=== PATIENT | female | born 1985 | race Caucasian/White ===

== ENCOUNTER → 2018-04-14 11:17 | Outpatient (CLI) | payer OTHER, MEDICAID, SELFPAY ==
[2018-04-14 13:18] LABS: Hematocrit 35.1 % (36-46); Hemoglobin 11.8 g/dL (12.0-16.0)
[2018-04-14 14:20] LABS: GTT (PREG) 1 Hour PP 50gm Dose 97 mg/dL (76-139)
== END ==
DX: Z36.9 Encounter for antenatal screening, unspecified (principal); Z3A.25 25 weeks gestation of pregnancy
CPT/HCPCS: 36415; 82950; 85014; 85018

== ENCOUNTER → 2018-06-16 10:58 | Outpatient (CLI) | payer OTHER, MEDICAID, SELFPAY ==
[2018-06-17 08:32] LABS: Strep Grp B PCR POS for Grp B Strep
== END ==
PROVIDERS: PCP Family Medicine
DX: Z34.83 Encounter for supervision of other normal pregnancy, third trimester (principal)
CPT/HCPCS: 87653

== ENCOUNTER 2018-07-04 05:49 | Inpatient (IN) | payer OTHER, MEDICAID, SELFPAY ==
[2018-07-04 06:40] LABS: Add Manual Diff / Slide Review NO; Basophils Percent Auto 0.6 % (0-2); Eosinophils Percent Auto 0.7 % (2-4); Hematocrit 33.7 % (36-46); Hemoglobin 11.3 g/dL (12.0-16.0); Lymphocytes Percent Auto 34.2 % (25-40); Mean Corpuscular HGB Conc 33.6 % (30-36); Mean Corpuscular Hemoglobin 27.1 PG (26-34); Mean Corpuscular Volume 80.5 fL (80-100); Monocytes Percent Auto 5.7 % (3-14); Neutrophils Absolute Auto 5000 /uL (3000-5900); Neutrophils Percent Auto 58.8 % (50-75); Platelet Count 142 X10^3/uL (150-400); Red Blood Cell Count 4.19 X10^6/uL (4.0-5.2); White Blood Cell Count 8.5 X10^3/uL (4.5-11.0)
--- NOTE | 2018-07-04 07:27 | SUR.OPER ---
Supine on Padded OR bed, head on pillow, safety belt at thigh, arms secured on padded arm boards at <90 degrees abduction. Bump under right buttock. Legs uncrossed with pillow under knees, gel pad to heels, tape over blanket to lower legs.
[2018-07-04] MEDS: CEFAZOLIN 2 GM/100 ML FROZ.PIGGY IV (08:08)
--- NOTE | 2018-07-04 08:22 | PM.PREOP ---
Pre-operative Note Interval Note Pre-op Check: Yes History & Physical Reviewed by Physician Changes: No
[2018-07-04] MEDS: TRIAMCINOLONE 50 MG/5 ML VIAL INJ (08:27)
--- NOTE | 2018-07-04 08:39 | SUR.OPER ---
Viable female born at 0841. Placenta and cord blood sent with L&D RN.
[2018-07-04 09:15] VITALS: BP 119/69; PULSE 91; RESP 12; TEMP 36.4; O2SAT 100
[2018-07-04 09:20] VITALS: BP 121/58; PULSE 76; RESP 10; O2SAT 98
[2018-07-04 09:25] VITALS: BP 124/77; PULSE 88; RESP 10; O2SAT 97
[2018-07-04 09:30] VITALS: BP 110/66; PULSE 88; RESP 14; TEMP 36.6; O2SAT 98
[2018-07-04 09:43] VITALS: BP 117/61; PULSE 75; RESP 12; TEMP 36.6; O2SAT 98
--- NOTE | 2018-07-04 09:46 | PM.GYNOP.1 ---
Operative Date/Time/Diagnoses Date of procedure: 07/04/18 Time of procedure: 09:46 Pre-op diagnosis: 39 weeks gestation Previous section Keloid scar Post-op diagnosis: same Procedure: Procedures Operation Date: 07/04/18 07:45 Actual Procedures Side Surgeon p Section-Repeat Not Applicable Radha Hurt MD Repeat LTCS and scar revision Indications: 39 weeks gestation Previous section Keloid scar Surgeon: Radha Hurt Anesthesia Type: Spinal (With Duramorph) Operative Notes Findings: Live female Normal tubes and ovaries Normal uterus Keloid scar from previous Pfannenstiel incision Closure Type: primary Specimen(s): other (Cord blood, placenta) Applied: catheter Estimated blood loss (mL): 600 Blood products transfused: none Procedure in detail: The patient was taken to the operating room where she was placed in the seated position. Spinal anesthesia with Duramorph was administered. The patient was then placed in the dorsal supine position with a leftward tilt. She was prepped and draped in the usual sterile fashion. A timeout was performed. After spinal analgesia was found to be adequate, the previous scar was excised in an elliptical fashion and carried through to the underlying layer fascia. The fascia was nicked in the midline, and the incision extended bilaterally with the Turner scissors. The superior aspect of the fascial incision was grasped with a [place] clamps, elevated, and the underlying rectus muscles dissected off sharply and bluntly. Attention was then turned to the inferior aspect of this incision which in a similar fashion was grasped with a Tl clamps, elevated, and the underlying rectus muscles dissected off sharply and bluntly. The rectus muscles were in the midline. The peritoneum was identified, grasped between 2 hemostats, and entered sharply with the Metzenbaum scissors. This incision was extended superiorly and inferiorly with good visualization of the bladder. The bladder blade was inserted. The vesicouterine peritoneum was identified, grasped with the pickup, and entered sharply with the Metzenbaum scissors. This incision was extended bilaterally, and the bladder flap was created digitally. The bladder blade was reinserted. The lower uterine segment was incised in a transverse fashion with the scalpel. Upon entering the amniotic sac there was moderate amount of clear amniotic fluid. The 's head was delivered with vacuum assistance. The remainder of the body delivered without difficulty. The cord was double clamped and cut. The was handed off to waiting RN and RT. The placenta was delivered manually. The uterus was cleared of all clots and debris. The uterine incision was repaired with #1 chromic in a running interlocking fashion, and a second layer the same suture was used for an imbricating layer. Hemostasis was achieved. The tubes and ovaries were examined and were found to be normal. The gutters were cleared of all clots and debris. The bladder flap was reapproximated using 2-0 Vicryl in a running fashion. The parietal peritoneum was closed using 2-0 Vicryl in a running fashion. The fascia was reapproximated using 0 Vicryl in a running fashion. The subcutaneous layer was copiously irrigated with warm normal saline. 5 simple interrupted sutures of 3-0 Vicryl were placed to reapproximate the subcutaneous layer. The skin was closed with 4-0 undyed Vicryl in a subcuticular fashion. 15 cc of 15 mg of Kenalog with normal saline was injected along the previous incision with 1 milligram/centimeter. Steri-Strips were placed. An Aquacell dressing was placed. The uterus was expressed of a small amount of old blood. Sponge, lap, and instrument counts were correct x-2. The patient tolerated the procedure well, and was taken to PACU in stable condition. Complications: none Post-operative Condition: stable Disposition: PACU Plan for aftercare: To Center after recovery
[2018-07-04] MEDS: LACTATED RINGERS 1,000 ML 100 ML IV ×2 (11:15→20:45)
[2018-07-04] MEDS: OXYCODONE/ACETAMINOPHEN 5/325 TABLET 2 TAB PO (12:19)
[2018-07-04] MEDS: METOCLOPRAMIDE 10 MG/2 ML INJ IV (15:18)
[2018-07-04] MEDS: KETOROLAC 30 MG/ML VIAL IV ×2 (16:18→22:18)
[2018-07-05] MEDS: KETOROLAC 30 MG/ML VIAL IV (04:11)
[2018-07-05] MEDS: OXYCODONE/ACETAMINOPHEN 5/325 TABLET 2 TAB PO ×5 (05:04→21:58)
[2018-07-05 06:34] LABS: Hematocrit 28.7 % (36-46); Hemoglobin 9.6 g/dL (12.0-16.0)
[2018-07-05] MEDS: PRENATAL VIT,CALC/IRON/FOLIC 1 TABLET 1 TAB PO (11:25)
[2018-07-05] MEDS: IBUPROFEN 600 MG TABLET PO ×3 (11:25→23:15)
[2018-07-05] MEDS: DOCUSATE 250 MG CAPSULE PO (11:26)
[2018-07-06] MEDS: OXYCODONE/ACETAMINOPHEN 5/325 TABLET 2 TAB PO ×2 (04:33→09:45)
[2018-07-06] MEDS: IBUPROFEN 600 MG TABLET PO ×2 (05:47→11:45)
[2018-07-06] MEDS: DOCUSATE 250 MG CAPSULE PO (09:45)
--- NOTE | 2018-07-06 12:20 | PM.OBPN.1 ---
Subjective - OB Interval history: Patient is a 33-year-old 2 para 2 postop day # 1. Status post repeat low-transverse section Patient comments: no complaints, pain well controlled, tolerating diet and flatus present baby status: doing well and nursing well feeding status: exclusively breast feeding Date Patient Seen: 07/05/18 Time Patient Seen: 11:30 Exam Vital Signs (past 8 hours): Oxygen Delivery Method Room Air Narrative Exam Narrative: Generally: A well-developed, well-nourished white female, sitting up in bed, no acute distress Lungs: Clear to auscultation bilateral Cardiovascular: Regular rate and rhythm Fundus: Firm at U -1 Incision: Clean dry and intact with Aquacel dressing Extremities: Negative Homans, no edema Objective Labs Result Diagrams: 07/05/18 06:10 Assessment & Plan (1) Status post repeat low transverse section: Status: Acute Assessment and plan: Assessment: Postop day # 1 status post repeat low-transverse section doing very well Plan: Anticipate discharge 07/06/2018 Continue routine postop care Current Visit: Yes Plan day: 1 plan OB: routine postop care Time Spent With Patient Total time spent is greater than 50% in coordination of care (as documented) at patient's floor/unit and/or counseling patient: less than 15 minutes
--- NOTE | 2018-07-06 12:31 | P.DS_ITS ---
Discharge Providers Date of admission: 07/04/18 05:49 Primary care physician: Therese Jackson MD Consults: 07/04/18 11:14 Consult to Market Research Senior Project Manager Routine Comment: Discharge provider: Radha Hurt MD Discharge Date: 07/06/18 Summary Date Patient Seen: 07/06/18 Time Patient Seen: 12:32 Hospital Course: Patient is a 33-year-old 2 para 2 who presented on 07/04/2018 for a scheduled repeat section due to a previous section. She underwent this procedure without complication. Her postoperative course was unremarkable and she was discharged home on postop day # 2 tolerating a diet , pain well controlled, ambulating, and going well. Peripartum Data Delivery Method: Section Laceration description: None Episiotomy description: None Procedures: Repeat low-transverse section Spinal anesthesia with Duramorph complications: none Discharge Diagnosis (1) Status post repeat low transverse section: Status: Acute Status at Discharge Functional status at discharge: independent ambulation Overall status at discharge: patient is progressing back to baseline Time Spent with Patient Total time spent providing and/or coordinating discharge services: Less than 30 minutes Objective Labs Result Diagrams: 07/05/18 06:10 Discharge Plan Discharge Plan Discharge comment: Call with fever, chills, redness or drainage around incisions or bleeding vaginally more than a pad in an hour Discharge Med Rec/Prescriptions Prescriptions: New oxycodone-acetaminophen [Percocet] 5-325 mg tablet 2 tab PO Q4-6H PRN (Reason: pain) Qty: 30 RF: 0 docusate sodium 250 mg capsule 250 mg PO DAILY Qty: 14 RF: 0 Continue Breast Pump - Double Electric PRN PRNQty: 1 RF: 0 vit-iron fum-folic ac [Mynatal] 65 mg iron- 1 mg capsule 1 cap PO QDAY Qty: 100 RF: 3 Discontinued dextroamphetamine-amphetamine [Adderall] 10 MG tablet 10 mg PO QAM Qty: 30 RF: 0 dextroamphetamine-amphetamine [Adderall XR] 30 MG capsule,extended release 24hr 30 mg PO QAM Qty: 30 RF: 0 omeprazole 20 mg capsule,delayed release(DR/EC) 20 mg PO QDAY@0600 Qty: 30 RF: 3 omeprazole 20 mg capsule,delayed release(DR/EC) RF: 0 Follow up/Referrals: Radha Hurt MD [Physician] - 1 Week (Saturday for Aquacel removal. My nurse will call on Saturday to schedule) Discharge Orders: Discharge (Order); Ordered 07/06/18 Ordered By: Radha Hurt Provider Discharge Instructions Diet: Diet as Tolerated and Regular Activity: No intercourse No heavy lifting Skin/Wound/Dressing Care Report to your healthcare provider any signs of infection, such as:: chills, fever, increased pain and unusual drainage Dressing: Do not remove Visit Report/Discharge Packet Instructions: DI for Discharge Data Primary Care Provider: Therese Jackson Attending Provider: Radha Hurt Admit Date/Time: 07/04/18 05:49
== END 2018-07-06 12:35 | disposition home or self-care (01) | DRG 540 ==
PROVIDERS: Admitting Provider Obstetrics & Gynecology; PCP Family Medicine; Visit Provider Obstetrics & Gynecology
PROC: 10D00Z1 Extraction of Products of Conception, Low, Open Approach (ICD-10-PCS; CPT 59514; principal; 2018-07-04 07:45)
DX: O34.219 Maternal care for unspecified type scar from previous cesarean delivery (principal); Z3A.39 39 weeks gestation of pregnancy; Z37.0 Single live birth
CPT/HCPCS: 36415; 59050; 59514; 85014; 85018; 85025; 86850; 86900; 86901; J0171; J0690; J1885; J2274; J2405; J2590; J2765; J3301

== ENCOUNTER → 2019-03-01 11:37 | Outpatient (CLI) | payer OTHER, MEDICAID, SELFPAY | PROVIDERS: PCP Family Medicine; Visit Provider Physician Assistant | DX: N89.8 Other specified noninflammatory disorders of vagina (principal) | CPT/HCPCS: 87210 ==

== ENCOUNTER → 2021-06-15 08:08 | Outpatient (CLI) | payer OTHER, MEDICAID, SELFPAY ==
[2021-06-15 09:06] LABS: COVID19 -Nasal RAPID POSITIVE (Negative)
== END ==
PROVIDERS: PCP Family Medicine; Visit Provider Nurse Practitioner
DX: U07.1 COVID-19 (principal)
CPT/HCPCS: 87635

== ENCOUNTER → 2023-05-06 10:46 | Outpatient (CLI) | payer OTHER, MEDICAID, SELFPAY | PROVIDERS: PCP Family Medicine; Visit Provider Nurse Practitioner Family | DX: N39.0 Urinary tract infection, site not specified (principal) | CPT/HCPCS: 81002; 87077; 87086; 87186 ==

== ENCOUNTER → 2023-09-12 14:54 | Outpatient (CLI) | payer OTHER, MEDICAID, SELFPAY ==
[2023-09-12 16:40] LABS: Appearance Urine UA CLEAR; Bilirubin Urine UA NEGATIVE (NEGATIVE); Color Urine UA YELLOW; Glucose Urine UA NEGATIVE (Negative); Ketones Urine UA NEGATIVE (NEGATIVE); Leukocyte Esterase Urine UA 1+ (NEGATIVE); Nitrite Urine UA NEGATIVE (Negative); Occult Blood Urine UA NEGATIVE (Negative); Protein Urine UA NEGATIVE (Negative); Specific Gravity Urine UA <=1.005 (1.000-1.035); Urobilinogen Urine UA 0.2 E.U./dL (0.2)
[2023-09-12 17:00] LABS: pH Urine UA 5.5 (4.5-8.0)
[2023-09-12 17:01] LABS: Bacteria Urine None Seen; Culture Indicated Urine Cult Not Indicated; RBC Urine None Seen (0-5/HPF); Squamous Epithelial Cell Urine 0-1 /HPF (0-5/HPF); WBC Urine 0-1/HPF (0-5/HPF)
== END ==
PROVIDERS: PCP Family Medicine; Referring Provider Family Medicine; Visit Provider Family Medicine
DX: R30.0 Dysuria (principal)
CPT/HCPCS: 81001

== ENCOUNTER → 2024-11-14 08:44 | Outpatient (CLI) | payer OTHER, SELFPAY | PROVIDERS: PCP Family Medicine; Visit Provider Nurse Practitioner Family | DX: J02.9 Acute pharyngitis, unspecified (principal) | CPT/HCPCS: 87070 ==

== ENCOUNTER 2025-09-02 01:37 | Emergency (ER) | payer OTHER, SELFPAY ==
[2025-09-02] VITALS (8 sets, daily range): BP systolic 90–142; BP diastolic 59–89; PULSE 46–78; RESP 16–24; TEMP 37.2; O2SAT 96–100; BMI 32.9
--- NOTE | 2025-09-02 01:53 | DI.CT.S_ITS ---
PROCEDURE: CT ABDOMEN PELVIS WO CON INDICATIONS: pain TECHNIQUE: CT of the abdomen and pelvis was obtained without intravenous contrast. Coronal and sagittal reformats were performed. For radiation dose reduction, the following was used: automated exposure control, adjustment of mA and/or kV according to patient size. COMPARISON: None. FINDINGS: Image quality: Diagnostic. Lower Chest: No significant findings. ABDOMEN: Liver: No contour-deforming mass. Gallbladder: No radiopaque gallstones or wall thickening. Biliary ducts: No biliary dilation. Pancreas: No ductal dilation. Spleen: Size is within normal limits. Adrenal Glands: No adrenal nodules. Kidneys and Ureters: Mild left hydro nephrosis and proximal left hydroureter secondary to a 5 mm calcified stone in the left proximal ureter, Hounsfield density of 420, (series 2, image 64). Punctate nonobstructive 1-2 mm stone in the left interpolar kidney (2/52). No right hydronephrosis or stone. Stomach and Bowel: Normal colonic caliber, without significant wall thickening. Normal appendix Peritoneum: No abnormal intraperitoneal fluid. No free air. Ventral Wall: No significant hernia. Abdominal Nodes: No retroperitoneal or mesenteric adenopathy by size criteria. Vessels: Aorta and inferior vena cava are normal in size. PELVIS: Pelvic Organs: Unremarkable. Bladder: Unremarkable. Pelvic Nodes: No enlarged lymph nodes. Miscellaneous: No inguinal hernias are seen. Bones: No aggressive osseous abnormality. IMPRESSION: Partially obstructive left proximal ureteral 5 mm stone with mild left hydroureteronephrosis. Additional nonobstructive 2 mm stone in the left interpolar kidney. Findings are concordant preliminary interpretation provided by [facility]. Dictated by: Cornel Bueno M.D. on 09/02/2025 at 7:55 Approved by: Cornel Bueno M.D. on 09/02/2025 at 7:58
[2025-09-02] MEDS: KETOROLAC 30 MG/ML VIAL 15 MG IV (02:00)
[2025-09-02 02:01] LABS: Add Manual Diff / Slide Review NO; Hematocrit 36.4 % (36-46); Hemoglobin 12.1 g/dL (12.0-16.0); Lymphocytes Absolute Auto 4900 /uL (1100-4500); Mean Corpuscular HGB Conc 33.1 % (30-36); Mean Corpuscular Hemoglobin 24.8 PG (26-34); Mean Corpuscular Volume 74.9 fL (80-100); Platelet Count 262 X10^3/uL (150-400)
--- NOTE | 2025-09-02 02:02 | PC.NURSE ---
Pt to imaging via ED stretcher with psychiatric tech
[2025-09-02 02:08] LABS: Culture Indicated Urine Cult Not Indicated
--- NOTE | 2025-09-02 02:09 | ED_ITS ---
HPI - General Adult General Chief complaint: Abdominal Pain Stated complaint: Abdominal Pain, Vomiting Time Seen by Provider: 09/02/25 01:43 Source: patient Mode of arrival: Ambulatory History of Present Illness HPI narrative: 40-year-old female with history of ADHD, without history of known kidney stones, has acute onset left flank nontraumatic pain, with some nausea no emesis. No fevers or chills. No painful frequent urination. No injury trauma new activities recalled. Had strep infection treated with amoxicillin and June 2025, otherwise no recent antibiotics. No recent diarrhea. Had initial nausea without emesis. No recent cough shortness of breath chest pain. Related Data Previous Rx's ?Medication ?Instructions ?Recorded clotrimazole-betamethasone 1 1 applic topical BID #45 grams 01/06/24 %-0.05 % topical cream fluconazole 150 mg tablet 150 mg PO Q3D 2 doses #2 tab s 06/24/25 metformin 500 mg tablet,extended 500 mg PO BID #180 ta bs 07/07/25 release 24 hr dextroamphetamine-amphetamine 12.5 12.5 mg PO DAILY #3 0 tabs 08/09/25 mg tablet lisdexamfetamine 70 mg capsule 70 mg PO DAILY #30 caps 08/09/25 cefdinir 300 mg capsule 300 mg PO BID 10 days #20 ca ps 09/02/25 fluconazole 200 mg tablet 200 mg PO DAILY #3 tabs 08/08 04/30 hydrocodone 5 mg-acetaminophen 325 1 tab PO Q6H PRN pa in #10 tabs 09/02/25 mg tablet Allergies Allergy/AdvReac Type Severity Reaction Status Date / Time No Known Drug Allergies Allergy Verified 09/02/25 01:53 Patient History Medical History (Updated 09/02/25 @ 04:02 by Dago Perez MD) Chronic headaches ADHD (attention deficit hyperactivity disorder) Migraines Plantar warts (2009) PCOS (polycystic ovarian syndrome) Infertility HPV (human papilloma virus) infection (2008) Abnormal Pap smear of cervix (2008) Surgical History Status post repeat low transverse section Status post delivery (04/25/17) Family History Father Age: 67 Migraine Sleep apnea Grandfather Diabetes mellitus Heart disease Hypertension Grandmother Age: 94 Alzheimer's dementia Mental health problem Mother Age: 67 Hypertension Grandmother Age: 94 Mental health problem Social History marital status: number of children: 2 household members: family lives independently: Yes caregiver/support person: No housing: house occupational status: unemployed Smoking Status: Never smoker second hand exposure: No alcohol intake: former substance use type: does not use Smoking Status: Never smoker Exam Narrative Exam Narrative: GENERAL: Well-developed patient, in mild distress. HEAD: Atraumatic. Normocephalic. EYES: Pupils equal round and reactive. Extraocular motions intact. No scleral icterus. No injection or drainage. ENT: Nose without bleeding, purulent drainage. Throat without erythema, tonsillar hypertrophy or exudate. Airway patent. NECK: Trachea midline. Non tender CARDIOVASCULAR: Regular rate and rhythm without murmurs, gallops, or rubs. RESPIRATORY: Clear to auscultation. Breath sounds equal bilaterally. No wheezes, rales, or rhonchi. GASTROINTESTINAL: Abdomen soft, non-tender, nondistended. EXTREMITIES: No edema or joint tenderness. BACK: Nontender without deformity or crepitance. No flank tenderness. NEURO: AOx3. Motor functions grossly nonfocal. SKIN: No rash or erythema of visible areas Initial Vital Signs Initial Vital Signs: Vital Signs Pulse Rate 46 L 09/02/25 01:50 Pulse Oximetry 100 09/02/25 01:50 Course Orders Ordered: ED Orders 09/02/25 01:50 Complete Blood Count AUTO DIFF Stat Comprehensive Metabolic Panel Stat Lipase Stat 09/02/25 01:52 Urine Culture Stat Urine Microscopic Stat 09/02/25 01:53 CT abdomen pelvis wo con Stat Discontinued Medications Ceftriaxone Sodium 1,000 mg/ (Sodium Chloride) 100 mls @ 200 mls/hr IV NOW ONE Stop: 09/02/25 02:14 Last Infusion: 09/02/25 03:14 Dose: Infused Documented By: Infusion: 09/02/25 03:06 Dose: Infused Documented By: Admin: 09/02/25 02:19 Dose: 200 mls/hr Documented By: CARLINE Sodium Chloride (Normal Saline 0.9%) 1,000 mls @ 1,000 mls/hr IV BOLUS ONE Stop: 09/02/25 03:20 Last Infusion: 09/02/25 03:04 Dose: 0 mls/hr Documented By: Admin: 09/02/25 02:30 Dose: 1,000 mls/hr Documented By: CARLINE Ketorolac Tromethamine (Ketorolac 30 Mg/Ml Vial) 15 mg IV NOW ONE Stop: 09/02/25 01:55 Last Admin: 09/02/25 02:00 Dose: 15 mg Documented By: CARLINE Ondansetron HCl (Ondansetron 4 Mg/2 Ml Inj) 4 mg IV NOW ONE Stop: 09/02/25 03:08 Last Admin: 09/02/25 04:17 Dose: Not Given Documented By: CEE Ondansetron HCl (Ondansetron 4 Mg Odt Prepack) 1 bottle MISC DIRECTED ONE Stop: 09/02/25 04:02 Last Admin: 09/02/25 04:07 Dose: 1 bottle Documented By: CEE Vital Signs Vital signs: Vital Signs - 8 hr 09/02/25 01:50 09/02/25 01:53 09/02/25 02:00 Temperature 99.0 F Pulse Rate 46 L 47 L 58 L Respiratory Rate 24 Blood Pressure 142/89 H Pulse Oximetry 100 98 99 Oxygen Delivery Method Room Air 09/02/25 02:12 09/02/25 02:12 09/02/25 02:30 Temperature Pulse Rate 70 69 Respiratory Rate 16 Blood Pressure 131/72 Pulse Oximetry 98 100 Oxygen Delivery Method 09/02/25 02:30 09/02/25 03:00 09/02/25 03:00 Temperature Pulse Rate 72 Respiratory Rate 16 Blood Pressure 110/75 104/67 Pulse Oximetry 100 Oxygen Delivery Method 09/02/25 03:30 09/02/25 03:30 09/02/25 04:00 Temperature Pulse Rate 72 78 Respiratory Rate 16 Blood Pressure 90/63 Pulse Oximetry 96 98 Oxygen Delivery Method 09/02/25 04:00 Temperature Pulse Rate Respiratory Rate 16 Blood Pressure 94/59 L Pulse Oximetry Oxygen Delivery Method Medical Decision Making Lab Data Lab results reviewed: Yes I reviewed the patient's lab results. Lab results narrative: White blood cell count 38924, hemoglobin 12.1, platelets adequate. Glucose 129. BUN 20 with creatinine 0.82 normal renal function, normal serum CO2, normal electrolytes. Liver functions and lipase normal. Urinalysis shows hematuria and some bacteria, urine culture was ordered specifically. HCG negative. 09/02/25 01:50 09/02/25 01:50 Labs: Lab Results 09/02/25 09/02/25 Range/Units 01:50 01:52 WBC 11.2 H (4.5-11.0) X10^3/uL RBC 4.87 (4.0-5.2) X10^6/uL Hgb 12.1 (12.0-16.0) g/dL Hct 36.4 (36-46) % MCV 74.9 L (80-100) fL MCH 24.8 L (26-34) PG MCHC 33.1 (30-36) % RDW 14.0 (11.6-14.8) % Plt Count 262 (150-400) X10^3/uL Neut % (Auto) 46.8 L (50-75) % Lymph % (Auto) 43.6 H (25-40) % [place] % (Auto) 6.8 (3-14) % Eos % (Auto) 1.5 L (2-4) % Baso % (Auto) 1.3 (0-2) % Neut # (Auto) 5300 (3436-0118) /uL Lymph # (Auto) 4900 H (7114-9711) /uL [place] # (Auto) 800 (0-900) /uL Eos # (Auto) 200 (0-450) /uL Baso # (Auto) 100 (0-100) /uL Sodium 141 (137-145) mmol/L Potassium 3.9 (3.4-5.1) mmol/L Chloride 108 H (98-107) mmol/L Carbon Dioxide 23 (22-32) mmol/L BUN 18 H (7-17) mg/dL Creatinine 0.82 (0.52-1.04) mg/dL Estimated GFR > 60 (>60) mL/min BUN/Creatinine Ratio 22.0 (6-22) Glucose 129 H (70-99) mg/dL Calcium 9.3 (8.4-10.2) mg/dL Total Bilirubin 0.3 (0.2-1.3) mg/dL AST 22 (14-36) IU/L ALT 21 (<35) IU/L Alkaline Phosphatase 84 (38-126) U/L Total Protein 7.5 (6.3-8.2) g/dL Albumin 4.6 (3.5-5.0) g/dL Globulin 2.9 (1.7-4.1) g/dL Albumin/Globulin Ratio 1.6 (1.0-2.8) Lipase 95 (23-300) U/L Urine RBC >100/hpf H (0-5/HPF) Urine WBC None seen (0-5/HPF) Ur Squamous Epith Cells 1-5 /hpf (0-5/HPF) Urine Bacteria Moderate (10-30) H (None) Urine Mucus 1+ H (Negative) Ur Culture Indicated? Cult not indicated Vol Urine Centrifuged 10ml (spun) Point of Care Testing Test Results Negative Urine Dip Bedside Urine Glucose Negative Bedside Urine Bilirubin - Negative Bedside Urine Ketone - Negative Urine Specific [place] 1.030 Bedside Urine Occult Blood +++ Bedside Urine pH 6.0 Bedside Urine Protein + 30 Bedside Urine Urobilinogen - Negative Bedside Urine Nitrite - Negative Bedside Urine Leukocytes - Negative Esterase Point of care testing: Point of Care Testing Test Results Negative Urine Dip Bedside Urine Glucose Negative Bedside Urine Bilirubin - Negative Bedside Urine Ketone - Negative Urine Specific [place] 1.030 Bedside Urine Occult Blood +++ Bedside Urine pH 6.0 Bedside Urine Protein + 30 Bedside Urine Urobilinogen - Negative Bedside Urine Nitrite - Negative Bedside Urine Leukocytes - Negative Esterase MDM Narrative Medical decision making narrative: 40-year-old female with acute onset left flank pain, no injury trauma, some nausea without emesis, no fevers or chills. No known history of kidney stones. No recent dysuria frequency. Afebrile, sirs screen negative. Symptoms suspicious for kidney stone. Consider also UTI, ovarian torsion, ovarian cysts/rupture, musculoskeletal, other. Labs pending. Urine test negative. CT abdomen and pelvis noncontrast ordered. IV Toradol, symptoms improving. No longer nauseated. Lab data: White blood cell count 84390, hemoglobin 12.1, platelets adequate. Glucose 129. BUN 20 with creatinine 0.82 normal renal function, normal serum CO2, normal electrolytes. Liver functions and lipase normal. Urinalysis shows hematuria and some bacteria, urine culture was ordered specifically. HCG negative. CT abdomen and pelvis noncontrast. Impressions: ?Proximal left ureteral stone with moderate left hydronephrosis. There is an additional small nonobstructing stone in the left collecting system. ? See tele radiology report. Left-sided proximal stone noted on symptomatic side. Possible urinary tract infection, scant bacteria without inflammatory cells, urine culture was not automatically prompted but was requested. We will cover with antibiotics in case of urine infection. IV ceftriaxone. Afebrile, sirs screen negative. Advised close follow up on Saturday with PCP to expedite local urology follow up. Given clinic contact information for local urologist Dr. Whatley, and return precautions to be rechecked if she develops fever or weakness. Home with family. Prescription for oral cefdinir course. She has had low blood pressures in the past, we will hold tamsulosin for now. She will take [id number] NSAIDs for control of symptoms, had good response to Toradol here. Home pack of hydrocodone/acetaminophen to use for pain control if needed. Home pack ondansetron ODT to use for nausea control if needed. Discharged home with family. Return precautions discussed. Discharge Plan Departure Patient Disposition: Home Clinical Impression: Left ureteral stone Activity Restrictions/Additional Instructions: Acute onset left flank pain, no history of known kidney stones prior. Urinalysis showed blood and bacteria, without inflammatory cells, unclear if this is truly infected, however urine culture was requested, and we did start antibiotics in case of infection. IV ceftriaxone given, we will give prescription for further antibiotics cefdinir to take pending the results of your urine culture. No fever at triage. CT scan did confirm suspected kidney stone 3 x 4 x 4 mm dimensions in the left ureter, and a tiny nonobstructing stone within the left kidney was also noted. Consider local urology follow up early this next week. We did discuss tamsulosin to help expel stone but you tend to have baseline low blood pressure, hold for now. Take [id number] Motrin as needed for pain control. Home pack pain medication dispensed, hydrocodone/acetaminophen to use if needed. Home pack antinausea medication oral dissolvable tablet ondansetron, to use as needed for nausea control. Recheck with local urologists on Saturday, call his office on Saturday morning. Consider recheck with your regular doctor on Saturday to facilitate further referrals to local urology, and also to check results of your urine culture. Return earlier to this/nearest emergency department for any change worsening symptoms or any concerns prior. History of yeast vaginitis after courses of antibiotic, requests for fluconazole 3 day course it has been used in the past with oral antibiotics, prescription sent to pharmacy. Prescriptions: New cefdinir 300 mg capsule 300 mg PO BID 10 Days Qty: 20 0RF hydrocodone-acetaminophen 5-325 mg tablet 1 tab PO Q6H PRN (Reason: pain) Qty: 10 0RF fluconazole 200 mg tablet 200 mg PO DAILY Qty: 3 0RF No Action fluconazole 150 mg tablet 150 mg PO Q3D 0 Days Qty: 2 0RF Rx Instructions: One tablet today, next tablet in 3 days metformin 500 mg tablet extended release 24 hr 500 mg PO BID Qty: 180 3RF clotrimazole-betamethasone 1-0.05 % cream 1 applic TOP BID Qty: 45 1RF dextroamphetamine-amphetamine 12.5 mg tablet 12.5 mg PO DAILY Qty: 30 0RF lisdexamfetamine 70 mg capsule 70 mg PO DAILY Qty: 30 0RF Referrals: Tommie Whatley DO [Physician, Urology] Isis Finnegan MD [Primary Care Provider, Family Practice] Stand Alone Forms: Patient Portal/API
[2025-09-02 02:24] LABS: Alanine Aminotransferase 21 IU/L (<35); Albumin 4.6 g/dL (3.5-5.0); Albumin Globulin Ratio 1.6 (1.0-2.8); Alkaline Phosphatase 84 U/L (38-126); Blood Urea Nitrogen 18 mg/dL (7-17); Calcium 9.3 mg/dL (8.4-10.2); Carbon Dioxide 23 mmol/L (22-32); Chloride 108 mmol/L (98-107); Estimated Glomerular Filt Rate > 60 mL/min (>60); Globulin 2.9 g/dL (1.7-4.1); Glucose 129 mg/dL (70-99); HEMOLYSIS 19 (0-50); Lipase 95 U/L (23-300); Potassium 3.9 mmol/L (3.4-5.1); Sodium 141 mmol/L (137-145); Total Protein 7.5 g/dL (6.3-8.2)
[2025-09-02] MEDS: SODIUM CHLORIDE 0.9% 1,000 ML 1000 ML IV (02:30)
[2025-09-02] MEDS: ONDANSETRON 4 MG ODT PREPACK 1 BOTTLE MISC (04:07)
== END 2025-09-02 04:18 | disposition home or self-care (01) ==
PROVIDERS: Emergency Provider Emergency Medicine; PCP Family Medicine
DX: N13.2 Hydronephrosis with renal and ureteral calculous obstruction (principal)
CPT/HCPCS: 36415; 74176; 80053; 81003; 81015; 81025; 83690; 85025; 87086; 96365; 96375; 99284; J0696; J1885; J7040; J7050

== ENCOUNTER 2025-09-05 03:51 | Observation (INO) | payer OTHER, SELFPAY ==
[2025-09-05] VITALS (15 sets, daily range): BP systolic 110–145; BP diastolic 59–103; PULSE 40–89; RESP 16–22; TEMP 35.1–36.7; O2SAT 87–100; BMI 30.9
--- NOTE | 2025-09-05 03:52 | ED.ABDPAIN ---
HPI - Abdominal Pain General Chief Complaint: Urogenital-Female Stated Complaint: kidney stone Time Seen by Provider: 09/05/25 03:51 History of Present Illness HPI narrative: Patient is a 40-year-old female no pertinent past medical history comes into the ED from home for evaluation of persistent left-sided flank pain, patient was seen here on 09/02/2025 was diagnosed with a urolithiasis, patient states that she tried taking the pain medications at home however states that the symptoms persisted/was not relieved with the medication therefore came into the ED for further evaluation treatment. Related Data Previous Rx's ?Medication ?Instructions ?Recorded clotrimazole-betamethasone 1 1 applic topical BID #45 grams 01/06/24 %-0.05 % topical cream fluconazole 150 mg tablet 150 mg PO Q3D 2 doses #2 tabs 06/24/25 metformin 500 mg tablet,extended 500 mg PO BID #180 tabs 07/07/25 release 24 hr dextroamphetamine-amphetamine 12.5 12.5 mg PO DAILY #30 tabs 08/09/25 mg tablet lisdexamfetamine 70 mg capsule 70 mg PO DAILY #30 caps 08/09/25 cefdinir 300 mg capsule 300 mg PO BID 10 days #20 caps 09/02/25 fluconazole 200 mg tablet 200 mg PO DAILY #3 tabs 09/02/25 hydrocodone 5 mg-acetaminophen 325 1 tab PO Q6H PRN pain #10 tabs 09/02/25 mg tablet Allergies Allergy/AdvReac Type Severity Reaction Status Date / Time No Known Drug Allergies Allergy Verified 09/02/25 01:53 Review of Systems Review of Systems Narrative: General: Denies fever, chills, weight loss HEENT: Denies headache, eye drainage, eye irritation, head trauma, sore throat, voice change Cardiovascular: Denies any chest pain, palpitations, tachycardia Respiratory: Denies any shortness of breath, cough, wheeze, stridor GI/: Positive left-sided flank pain, Denies any abdominal pain, nausea, vomiting, diarrhea, bright red blood per rectum, melanotic stools, urinary frequency, urinary retention, dysuria, hematuria MSK: Denies any joint pain, muscle pains, swelling Skin: Denies any rashes, lesions, discoloration Neuro: Denies any headache, lightheadedness, dizziness, fainting, weakness Psych: Denies SI/HI Patient History Medical History (Updated 09/05/25 @ 05:49 by Franco Rosenthal DO) Chronic headaches ADHD (attention deficit hyperactivity disorder) Migraines Plantar warts (2009) PCOS (polycystic ovarian syndrome) Infertility HPV (human papilloma virus) infection (2008) Abnormal Pap smear of cervix (2008) Surgical History Status post repeat low transverse section Status post delivery (04/25/17) Family History Father Age: 67 Migraine Sleep apnea Grandfather Diabetes mellitus Heart disease Hypertension Grandmother Age: 94 Alzheimer's dementia Mental health problem Mother Age: 67 Hypertension Grandmother Age: 94 Mental health problem Social History marital status: number of children: 2 household members: family lives independently: Yes caregiver/support person: No housing: house occupational status: unemployed second hand exposure: No alcohol intake: former substance use type: does not use Exam Narrative Exam Narrative: General: Cooperative, well-developed, patient appears uncomfortable in the stretcher HEENT: Normocephalic, atraumatic, PERRLA, normal sclera, eyelids normal Neck: Active full range of motion, atraumatic Chest: Normal to inspection, negative crepitus, no overlying erythema ecchymosis Respiratory: Normal respiratory effort, not in acute respiratory distress, clear to auscultation bilaterally negative cough, wheeze, tachypnea, rhonchi, rales Cardiology: Regular rate rhythm negative gallop, murmur, rubs GI/: No tenderness to palpation, soft, non rigid, normal to inspection, exam deferred MSK: Full active range of motion in all 4 extremities, atraumatic, no tenderness to palpation of any bony prominences Skin: No rashes or lesions noted Neuro: Alert awake oriented x3, moves all 4 extremities spontaneously, cranial nerves intact, able to answer all questions appropriately follows commands appropriately Psych: Cooperative, negative suicidal or homicidal ideations Initial Vital Signs Initial Vital Signs: Vital Signs Temperature 97.6 F 09/05/25 03:55 Pulse Rate 66 09/05/25 03:55 Respiratory Rate 22 09/05/25 03:55 Blood Pressure 143/103 H 09/05/25 03:55 Pulse Oximetry 99 09/05/25 03:55 Oxygen Delivery Method Room Air 09/05/25 03:55 Course Orders Ordered: ED Orders 09/05/25 03:53 CT kidney ureter bladder (KUB) Stat 09/05/25 03:55 Ictotest Urine Stat Urinalysis and Microscopic Stat 09/05/25 04:00 CBC Auto Diff [Complete Blood Count AUTO DIFF] Stat CMP [Comprehensive Metabolic Panel] Stat Sodium Chloride (Normal Saline 0.9%) 1,000 mls @ 1,000 mls/hr IV BOLUS ONE Stop: 09/05/25 04:52 Last Admin: 09/05/25 03:59 Dose: 1,000 mls/hr Discontinued Medications Hydromorphone HCl (Hydromorphone 1 Mg/Ml Syringe) 1 mg IV NOW ONE Stop: 09/05/25 04:21 Last Admin: 09/05/25 04:24 Dose: 1 mg Morphine Sulfate (Morphine 4 Mg/Ml Inj) 4 mg IV NOW ONE Stop: 09/05/25 03:54 Last Admin: 09/05/25 03:59 Dose: 4 mg Ondansetron HCl (Ondansetron 4 Mg/2 Ml Inj) 4 mg IV NOW ONE Stop: 09/05/25 03:54 Last Admin: 09/05/25 03:59 Dose: 4 mg Ondansetron HCl (Ondansetron 4 Mg/2 Ml Inj) 4 mg IV NOW ONE Stop: 09/05/25 04:21 Last Admin: 09/05/25 04:24 Dose: 4 mg Vital Signs Vital signs: Vital Signs - 8 hr 09/05/25 03:55 Temperature 97.6 F Pulse Rate 66 Respiratory Rate 22 Blood Pressure 143/103 H Pulse Oximetry 99 Oxygen Delivery Method Room Air MDM - Abdominal Pain Lab Data 09/05/25 04:00 09/05/25 04:00 Labs: Lab Results 09/05/25 09/05/25 Range/Units 03:55 04:00 WBC 10.0 (4.5-11.0) X10^3/uL RBC 4.78 (4.0-5.2) X10^6/uL Hgb 12.0 (12.0-16.0) g/dL Hct 36.6 (36-46) % MCV 76.5 L (80-100) fL MCH 25.2 L (26-34) PG MCHC 33.0 (30-36) % RDW 14.2 (11.6-14.8) % Plt Count 247 (150-400) X10^3/uL Neut % (Auto) 64.5 (50-75) % Lymph % (Auto) 27.6 (25-40) % Stanley % (Auto) 6.2 (3-14) % Eos % (Auto) 1.4 L (2-4) % Baso % (Auto) 0.3 (0-2) % Neut # (Auto) 6400 (9666-0363) /uL Lymph # (Auto) 2800 (1583-0423) /uL Stanley # (Auto) 600 (0-900) /uL Eos # (Auto) 100 (0-450) /uL Baso # (Auto) 0 (0-100) /uL Sodium 141 (137-145) mmol/L Potassium 3.4 (3.4-5.1) mmol/L Chloride 106 (98-107) mmol/L Carbon Dioxide 25 (22-32) mmol/L BUN 15 (7-17) mg/dL Creatinine 0.84 (0.52-1.04) mg/dL Estimated GFR > 60 (>60) mL/min BUN/Creatinine Ratio 17.9 (6-22) Glucose 138 H (70-99) mg/dL Calcium 9.0 (8.4-10.2) mg/dL Total Bilirubin 0.3 (0.2-1.3) mg/dL AST 29 (14-36) IU/L ALT 33 (<35) IU/L Alkaline Phosphatase 92 (38-126) U/L Total Protein 7.8 (6.3-8.2) g/dL Albumin 4.7 (3.5-5.0) g/dL Globulin 3.1 (1.7-4.1) g/dL Albumin/Globulin Ratio 1.5 (1.0-2.8) Urine Color Yellow Urine Appearance Cloudy Urine pH 5.0 (4.5-8.0) Ur Specific Lyons >=1.030 H (1.000-1.035) Urine Protein 2+ H (Negative) Urine Glucose (UA) Negative (Negative) g/dL Urine Ketones Negative (NEGATIVE) Urine Occult Blood 3+ H (Negative) Urine Nitrate Negative (Negative) Urine Bilirubin 1+ H (NEGATIVE) Urine Urobilinogen 1.0 (0.2) E.U./dL Ur Leukocyte Esterase Negative (NEGATIVE) [facility] Narrative Medical decision making narrative: Patient is a 40-year-old female without any significant past medical history comes into the ED from home for evaluation of persistent left-sided flank pain, she was seen here on the and was diagnosed with a 5 mm stone within the left ureter. She states that she has been doing okay but just a few hours ago she had a sudden onset of worsening pain she states that she did take her Percocet without any relief therefore came into the ED for further evaluation treatment. Patient had lab work repeated here, no leukocytosis creatinine normal, patient's urinalysis does show significant amount of squamous cells, no leukocytes, there was few bacteria which is improved from previous performed on 09/02/2025, no indication for antibiotics at this time. CT scan does show repeat urolithiasis however it does appear to be more distal now more at the UVJ rather than mid proximal from previous performed on 09/02/2025. Preliminary read does support this, showing left distal ureteral stone with obstruction, patient has had multiple doses of medication, 4 mg morphine 1 mg Dilaudid 30 mg Toradol without significant improvement of symptoms given persistent intractable pain patient will require admission to the hospital we will reach out to hospitalist for admission. The patient's management plan was discussed Dr. Parks, who agrees to admit the patient to their service and assumes care of this patient at this time. Full admission orders will be placed by the primary team. Discharge Plan Departure Patient Disposition: Admitted as Observation Clinical Impression: Left ureteral stone, Intractable abdominal pain
--- NOTE | 2025-09-05 03:53 | DI.CT.S_ITS ---
PROCEDURE: CT KIDNEY URETER BLADDER (KUB) INDICATIONS: Left-sided flank pain known urolithiasis TECHNIQUE: Axial sections were acquired from the lung bases to the pubic symphysis. Coronal and sagittal reformats were performed. For radiation dose reduction, the following was used: automated exposure control, adjustment of mA and/or kV according to patient size. COMPARISON: [facility], CT, CT ABDOMEN PELVIS WO CON, 09/02/2025, 1:54. FINDINGS: Image quality: Diagnostic. Lower Chest: No significant findings. URINARY: Right Kidney: No stones or hydronephrosis. Right Ureter: No hydroureter. Left Kidney: There is moderate left-sided hydronephrosis. Left Ureter: [id number] left-sided hydroureter is seen. There is an obstructing stone within the distal left ureter, as on series 2, image 129, measuring 5 mm. Bladder: Normal wall thickness. No stones. ABDOMEN: Liver: No contour-deforming solid mass. Gallbladder: No radiopaque gallstones or wall thickening. Biliary ducts: No biliary dilation. Pancreas: No ductal dilation. Spleen: Size is within normal limits. Adrenal Glands: No adrenal nodules. Stomach and Bowel: The colon is relatively decompressed. No dilated loops of small bowel are seen. A normal appendix is noted. Peritoneum: No abnormal intraperitoneal fluid. No free air. Ventral Wall: A mild periumbilical hernia is seen, containing fat. Abdominal Nodes: No enlarged retroperitoneal or mesenteric lymph nodes. Vessels: Aorta and inferior vena cava are normal in size. PELVIS: Pelvic Organs: No adnexal masses are seen on either side. Pelvic Nodes: Unremarkable. Miscellaneous: No inguinal hernias are seen. Bones: Unremarkable. IMPRESSION: The previously seen left proximal ureteral stone is now seen within the left ureterovesicular junction, with associated left-sided hydroureter and hydronephrosis. Note: No significant discrepancy from the preliminary report. Dictated by: Eber Knowles M.D. on 09/05/2025 at 7:21 Approved by: Eber Knowles M.D. on 09/05/2025 at 7:24
--- NOTE | 2025-09-05 03:55 | PC.NURSE ---
pt dx with kidney stones on the tonight took the pain meds given without relief, states the pain is worse than it was when she was seen before, also c/o nausea, this is the first kidney stone has not had any in the past
[2025-09-05] MEDS: SODIUM CHLORIDE 0.9% 1,000 ML 1000 ML IV ×2 (03:59→05:00)
[2025-09-05] MEDS: MORPHINE 4 MG/ML INJ IV (03:59)
[2025-09-05] MEDS: ONDANSETRON 4 MG/2 ML INJ IV ×2 (03:59→04:24)
[2025-09-05 04:10] LABS: Add Manual Diff / Slide Review NO; Hematocrit 36.6 % (36-46); Hemoglobin 12.0 g/dL (12.0-16.0); Lymphocytes Absolute Auto 2800 /uL (1100-4500); Mean Corpuscular HGB Conc 33.0 % (30-36); Mean Corpuscular Hemoglobin 25.2 PG (26-34); Mean Corpuscular Volume 76.5 fL (80-100); Platelet Count 247 X10^3/uL (150-400)
[2025-09-05 04:20] LABS: Alanine Aminotransferase 33 IU/L (<35); Albumin 4.7 g/dL (3.5-5.0); Albumin Globulin Ratio 1.5 (1.0-2.8); Alkaline Phosphatase 92 U/L (38-126); Blood Urea Nitrogen 15 mg/dL (7-17); Calcium 9.0 mg/dL (8.4-10.2); Carbon Dioxide 25 mmol/L (22-32); Chloride 106 mmol/L (98-107); Estimated Glomerular Filt Rate > 60 mL/min (>60); Globulin 3.1 g/dL (1.7-4.1); Glucose 138 mg/dL (70-99); HEMOLYSIS < 15 (0-50); Potassium 3.4 mmol/L (3.4-5.1); Sodium 141 mmol/L (137-145); Total Protein 7.8 g/dL (6.3-8.2)
[2025-09-05 04:46] LABS: Appearance Urine UA CLOUDY; Bilirubin Urine UA 1+ (NEGATIVE); Color Urine UA YELLOW; Glucose Urine UA NEGATIVE (Negative); Ketones Urine UA NEGATIVE (NEGATIVE); Leukocyte Esterase Urine UA NEGATIVE (NEGATIVE); Nitrite Urine UA NEGATIVE (Negative); Occult Blood Urine UA 3+ (Negative); Protein Urine UA 2+ (Negative); Specific Gravity Urine UA >=1.030 (1.000-1.035); Urobilinogen Urine UA 1.0 E.U./dL (0.2)
[2025-09-05 04:47] LABS: pH Urine UA 5.0 (4.5-8.0)
[2025-09-05 04:54] LABS: Culture Indicated Urine Cult Not Indicated; Ictotest Urine Negative (Negative)
[2025-09-05] MEDS: KETOROLAC 30 MG/ML VIAL IV (04:56)
[2025-09-05] MEDS: TAMSULOSIN 0.4 MG CAPSULE PO ×2 (05:59→11:35)
--- NOTE | 2025-09-05 06:13 | PC.NURSE ---
Pain still present. Intermittently need for pain management. Plan is to admit for pain control and hope stone passes.
[2025-09-05] MEDS: PROCHLORPERAZINE 10 MG/2 ML VIAL IV (08:35)
[2025-09-05] MEDS: SODIUM CHLORIDE 0.9% 1,000 ML 100 ML IV ×2 (08:35→18:18)
--- NOTE | 2025-09-05 10:09 | PM.HP.IH.1 ---
History of Present Illness History of Present Illness Date Patient Seen: 09/05/25 Chief complaint: kidney stone Narrative: The pt is a 40yo woman with PCOS and ADHD who presented with left flank pain. The pt reports acute onset of pain on 09/02. She came to the ED and was diagnosed with left sided nephrolithiasis that was 5mm and partially obstructive in proximal ureter. Her creatinine was stable. The pt was discharged home with PO pain medication. She states that her pain nearly completely resolved. It then returned around 1am this morning, again severe. She states that she took Tylenol and Hydrocodone without relief, and returned to the ED for repeat evaluation. In the ED, the pt received multiple doses of IV pain medication to improve her pain. Repeat CT scan showed the stone had migrated to the ureterovesicular junction. This morning the pt reports that she has no pain at all. The pt denies any dysuria. She has had diarrhea for the past 2 days. She started her menses on 09/02, so it is hard for her to tell if there is blood in her urine. She denies any chest pain, SOB. She had otherwise been feeling well. [facility], [facility] Medical History (Updated 09/05/25 @ 05:49 by Franco Rosenthal DO) Chronic headaches ADHD (attention deficit hyperactivity disorder) Migraines Plantar warts (2009) PCOS (polycystic ovarian syndrome) Infertility HPV (human papilloma virus) infection (2008) Abnormal Pap smear of cervix (2008) Surgical History Status post repeat low transverse section Status post delivery (04/25/17) Family History Father Age: 67 Migraine Sleep apnea Grandfather Diabetes mellitus Heart disease Hypertension Grandmother Age: 94 Alzheimer's dementia Mental health problem Mother Age: 67 Hypertension Grandmother Age: 94 Mental health problem Social History marital status: number of children: 2 household members: spouse and family lives independently: Yes caregiver/support person: No housing: house occupational status: unemployed Smoking Status: Never smoker second hand exposure: No alcohol intake: former substance use type: does not use Meds Home Medications and Allergies Home Medications ?Medication ?Instructions ?Recorded ?Confirmed ?Type clotrimazole-betamethasone 1 1 applic topical BID #45 grams 01/06/24 07/07/25 Rx %-0.05 % topical cream fluconazole 150 mg tablet 150 mg PO Q3D 2 doses #2 tabs 06/24/25 07/07/25 Rx metformin 500 mg tablet,extended 500 mg PO BID #180 tabs 07/07/25 07/07/25 Rx release 24 hr dextroamphetamine-amphetamine 12.5 12.5 mg PO DAILY #30 tabs 08/09/25 Rx mg tablet lisdexamfetamine 70 mg capsule 70 mg PO DAILY #30 caps 08/09/25 Rx cefdinir 300 mg capsule 300 mg PO BID 10 days #20 caps 09/02/25 Rx fluconazole 200 mg tablet 200 mg PO DAILY #3 tabs 09/02/25 Rx hydrocodone 5 mg-acetaminophen 325 1 tab PO Q6H PRN pain #10 tabs 09/02/25 Rx mg tablet Allergies Allergy/AdvReac Type Severity Reaction Status Date / Time No Known Drug Allergies Allergy Verified 09/02/25 01:53 Exam Vital Signs (past 8 hours): - 09/05/25 03:55 09/05/25 03:56 09/05/25 03:57 Temperature 97.6 F Pulse Rate 66 48 L Respiratory Rate 22 Blood Pressure 143/103 H 143/103 H Pulse Oximetry 99 87 L Oxygen Delivery Method Room Air Oxygen Flow Rate 09/05/25 04:00 09/05/25 04:01 09/05/25 04:01 Temperature Pulse Rate 46 L 46 L Respiratory Rate Blood Pressure 142/97 H Pulse Oximetry 100 100 Oxygen Delivery Method Oxygen Flow Rate 09/05/25 04:20 09/05/25 04:20 09/05/25 04:30 Temperature Pulse Rate 48 L 44 L Respiratory Rate Blood Pressure 145/94 H Pulse Oximetry 99 95 Oxygen Delivery Method Oxygen Flow Rate 09/05/25 04:31 09/05/25 04:31 09/05/25 05:00 Temperature Pulse Rate 44 L 40 L Respiratory Rate Blood Pressure 119/60 Pulse Oximetry 95 96 Oxygen Delivery Method Oxygen Flow Rate 09/05/25 05:30 09/05/25 05:31 09/05/25 05:31 Temperature Pulse Rate 70 70 Respiratory Rate Blood Pressure 130/64 Pulse Oximetry 100 100 Oxygen Delivery Method Oxygen Flow Rate 09/05/25 06:00 09/05/25 06:00 09/05/25 06:45 Temperature 95.1 F L Pulse Rate 45 L 88 Respiratory Rate 16 Blood Pressure 125/61 116/78 Pulse Oximetry 100 97 Oxygen Delivery Method Room Air Oxygen Flow Rate 0 09/05/25 07:29 Temperature 96.1 F L Pulse Rate 89 Respiratory Rate 16 Blood Pressure 110/69 Pulse Oximetry 99 Oxygen Delivery Method Oxygen Flow Rate Oxygen Delivery Method Room Air Oxygen Flow Rate 0 Narrative Exam Narrative: Gen: NAD, laying comfortably in bed, appears well HEENT: normocephalic, atraumatic, sclera clear Neck: no LAD CV: RRR Resp: clear to auscultation bilaterally Abd: soft, nontender, nondistended Back: no CVA tenderness Ext: no edema Neuro: no gross deficits Objective Labs 09/05/25 04:00 09/05/25 04:00 Labs: Laboratory Results - last 24 hr 09/05/25 09/05/25 03:55 04:00 WBC 10.0 RBC 4.78 Hgb 12.0 Hct 36.6 MCV 76.5 L MCH 25.2 L MCHC 33.0 RDW 14.2 Plt Count 247 Neut % (Auto) 64.5 Lymph % (Auto) 27.6 Emmons % (Auto) 6.2 Eos % (Auto) 1.4 L Baso % (Auto) 0.3 Neut # (Auto) 6400 Lymph # (Auto) 2800 Emmons # (Auto) 600 Eos # (Auto) 100 Baso # (Auto) 0 Sodium 141 Potassium 3.4 Chloride 106 Carbon Dioxide 25 BUN 15 Creatinine 0.84 Estimated GFR > 60 BUN/Creatinine Ratio 17.9 Glucose 138 H Calcium 9.0 Total Bilirubin 0.3 AST 29 ALT 33 Alkaline Phosphatase 92 Total Protein 7.8 Albumin 4.7 Globulin 3.1 Albumin/Globulin Ratio 1.5 Urine Color Yellow Urine Appearance Cloudy Urine pH 5.0 Ur Specific Radcliffe >=1.030 H Urine Protein 2+ H Urine Glucose (UA) Negative Urine Ketones Negative Urine Occult Blood 3+ H Urine Nitrate Negative Urine Bilirubin 1+ H Ur Bilirubin Confirm Negative Urine Urobilinogen 1.0 Ur Leukocyte Esterase Negative Urine RBC 30-100/hpf H Urine WBC 1-5/hpf Ur Squamous Epith Cells 5-10 /hpf H Calcium Oxalate Crystal Few H Amorphous Sediment 1+ Urine Bacteria Few (2-10) H Urine Mucus 1+ H Ur Culture Indicated? Cult not indicated Vol Urine Centrifuged 10ml (spun) Assessment & Plan Assessment & Plan narrative: The pt is a 40yo woman with PCOS and ADHD who presented with left flank pain, with kidney stone at ureterovesicular junction. 1) Nephrolithiasis: - Continue narcotics for pain relief - Tylenol PRN - Flomax 4mg daily - Strain urine for stone 2) ADHD: Stable - Continue home Vyvanse, Adderall 3) PCOS: Stable - Continue home Metformin DVT ppx: None needed, pt ambulatory and will likely d/c tomorrow Code: Full Diet: Regular Dispo: Hopeful for d/c tomorrow after passage of stone. Time-Based Coding :: [TOTAL MINUTES] spent with patient and on the chart (including review of chart, obtaining history, exam, reviewing outside data, placing orders, documenting exam and treatment plan, and counseling patient) on [DATE]. PROFEE [employer] Associate Professor Document charge(s): Yes Charge Codes Initial inpatient/observation care: [id number]
[2025-09-05] MEDS: ACETAMINOPHEN 325 MG TABLET 650 MG PO (12:04)
--- NOTE | 2025-09-05 12:46 | CM.DANOTE ---
Patient is a 40 yo female who was admitted OBS Status on 09/05/25 today for failed outpt tx of Kidney Stones. Pt has [employer] HO for insurance and her PCP is Dr. Isis Finnegan. EMR was reviewed. Per MD, pt with urolithiasis and was given po pain medication and pain not managed well and was admitted for IV medications to better manage pain. MD anticipates another day before likely home on po meds and outpt f/u and no anticipated barriers to discharge or needs. Patient lives in [place] with her and two children and she is active and independent at baseline, does not use DME for ambulation, and drives. Pt confirms her preference is home when pain better managed and states her will provide transport. Pt does not anticipate any d/c needs at this time. KIRSTEN Garcia Discharge Planning/Care Management CM Discharge Assessment Start: 09/05/25 06:39 Freq: Status: Active Protocol: Document 09/05/25 12:44 BF (Rec: 09/05/25 12:46 BF [id number]) Discharge Planning Assessment Assigned Discharge KIRSTEN Robison Guest Relations Coordinator Provider Dr. Isis Finnegan Insurance [employer]A/Assigned informally spouse Tomas Designee Name Contact Information [phone] Advance Directives? No Advance Directives No on File History Provided By Patient,Medical Record Has Patient been No admitted in last 30 days? Prior Living House Arrangements Household Members spouse,family Type of Drives own vehicle transporation used prior to admit Independent with ADL Yes 's Is patient alert and Yes oriented? Caregiver for Yes: 2 kids at home Another Barriers to No Discharge Discharge Plan Home Transportation Spouse to transport at d/c Arrangement Referrals Initiated None needed Whiteboard Updated Yes in Patient Room with name and ext. # of [employer] Review Status In Process Please Provide Date 09/05/25 Initial DC Assessment Was Performed Next Review Type Continued Stay Review
--- NOTE | 2025-09-05 17:57 | PC.NURSE ---
Pt sleeping most of shift. Pain control with PO oxy and IV Dilaudid. Slight hematuria, and straining urine. No stone found yet. Little appetite, animemtics given.
[2025-09-05] MEDS: SENNOSIDES 8.6 MG TABLET 17.2 MG PO (20:56)
[2025-09-06] MEDS: SODIUM CHLORIDE 0.9% 1,000 ML 100 ML IV ×3 (03:13→22:37)
[2025-09-06] MEDS: TAMSULOSIN 0.4 MG CAPSULE PO (08:50)
--- NOTE | 2025-09-06 09:11 | P.PN_ITS ---
Subjective Subjective Interval history: The pt reports that her pain continues to come in waves. She continues to have very little appetite with nausea as well. She states that the pain has overall not really improved at all. Exam Vital Signs (past 8 hours): Oxygen Delivery Method Room Air Oxygen Flow Rate 0 Narrative Exam Narrative: Gen: NAD, laying comfortably in bed, appears well CV: RRR Resp: clear to auscultation bilaterally Abd: soft, nontender, nondistended Back: no significant CVA tenderness Ext: no edema Objective Labs 09/05/25 04:00 09/05/25 04:00 [facility] Medical History (Updated 09/05/25 @ 05:49 by Franco Rosenthal DO) Chronic headaches ADHD (attention deficit hyperactivity disorder) Migraines Plantar warts (2009) PCOS (polycystic ovarian syndrome) Infertility HPV (human papilloma virus) infection (2008) Abnormal Pap smear of cervix (2008) Surgical History Status post repeat low transverse section Status post delivery (04/25/17) Family History Father Age: 67 Migraine Sleep apnea Grandfather Diabetes mellitus Heart disease Hypertension Grandmother Age: 94 Alzheimer's dementia Mental health problem Mother Age: 67 Hypertension Grandmother Age: 94 Mental health problem Social History marital status: number of children: 2 household members: spouse and family lives independently: Yes caregiver/support person: No housing: house occupational status: unemployed Smoking Status: Never smoker second hand exposure: No alcohol intake: former substance use type: does not use Assessment & Plan Assessment & Plan narrative: The pt is a 40yo woman with PCOS and ADHD who presented with left flank pain, with kidney stone at ureterovesicular junction. 1) Nephrolithiasis: Persistent severe pain - Continue narcotics for pain relief - Addition IV dilaudid for pain relief - Tylenol PRN - Flomax 4mg daily - Strain urine for stone - Consulted Urology. Options are surgery vs waiting. Pt would like to wait overnight to see if passes. If pain not improved by the morning, may want to consider surgical option. Will put NPO at midnight. 2) ADHD: Stable - Continue home Vyvanse, Adderall 3) PCOS: Stable - Continue home Metformin DVT ppx: Lovenox Code: Full Diet: Regular Dispo: Pending improvement in pain to tolerable levels/passage of stone/surgery. Time-Based Coding :: 50 spent with patient and on the chart (including review of chart, obtaining history, exam, reviewing outside data, placing orders, documenting exam and treatment plan, and counseling patient) on 09/06/25. PROFEE Clinical Appeals Rn Document charge(s): Yes Charge Codes Subsequent inpatient/observation care: [id number]
[2025-09-06] MEDS: ONDANSETRON 4 MG/2 ML INJ IV ×2 (09:33→17:00)
[2025-09-06] MEDS: MORPHINE 4 MG/ML INJ 3 MG IV (09:34)
[2025-09-06 19:00] VITALS: BP 129/75; PULSE 69; RESP 18; TEMP 36.8; O2SAT 95
[2025-09-06 21:08] VITALS: BP 119/59; PULSE 64
[2025-09-06] MEDS: PROCHLORPERAZINE 10 MG/2 ML VIAL IV (21:08)
[2025-09-07] MEDS: KETOROLAC 30 MG/ML VIAL 15 MG IV ×2 (00:40→08:00)
--- NOTE | 2025-09-07 06:16 | PC.NURSE ---
date night caregiver RN note pt rested well overnight, c/o mod pain at start of night and states the pain has imporved overnight, prn analgesics with effect, mild nausea with pain, prn anitemetic with effect, NPO at midnight in case of procerdure in am, I&O monitored and urine strained, no kidney stone noted, pt is on her menses with small to mod clots noted when voiding, call bardales within reach, labs as ordered, pt decline HS home meds due to nausea, care ongoing
[2025-09-07 06:51] LABS: Add Manual Diff / Slide Review NO; Hematocrit 31.5 % (36-46); Hemoglobin 10.6 g/dL (12.0-16.0); Lymphocytes Absolute Auto 2300 /uL (1100-4500); Mean Corpuscular HGB Conc 33.5 % (30-36); Mean Corpuscular Hemoglobin 25.5 PG (26-34); Mean Corpuscular Volume 76.3 fL (80-100); Platelet Count 179 X10^3/uL (150-400)
[2025-09-07 07:05] LABS: Blood Urea Nitrogen 9 mg/dL (7-17); Calcium 8.6 mg/dL (8.4-10.2); Carbon Dioxide 22 mmol/L (22-32); Chloride 110 mmol/L (98-107); Estimated Glomerular Filt Rate > 60 mL/min (>60); Glucose 93 mg/dL (70-99); HEMOLYSIS < 15 (0-50); Potassium 3.7 mmol/L (3.4-5.1); Sodium 140 mmol/L (137-145)
[2025-09-07] MEDS: SODIUM CHLORIDE 0.9% 1,000 ML 100 ML IV (07:46)
--- NOTE | 2025-09-07 10:10 | P.DS_ITS ---
History of Present Illness History of Present Illness Date Patient Seen: 09/07/25 Chief complaint: kidney stone Narrative: The pt is a 40yo woman with PCOS and ADHD who presented with left flank pain. The pt reports acute onset of pain on 09/02. She came to the ED and was diagnosed with left sided nephrolithiasis that was 5mm and partially obstructive in proximal ureter. Her creatinine was stable. The pt was discharged home with PO pain medication. She states that her pain nearly completely resolved. It then returned around 1am this morning, again severe. She states that she took Tylenol and Hydrocodone without relief, and returned to the ED for repeat evaluation. In the ED, the pt received multiple doses of IV pain medication to improve her pain. Repeat CT scan showed the stone had migrated to the ureterovesicular junction. This morning the pt reports that she has no pain at all. The pt denies any dysuria. She has had diarrhea for the past 2 days. She started her menses on 09/02, so it is hard for her to tell if there is blood in her urine. She denies any chest pain, SOB. She had otherwise been feeling well. Discharge Providers Provider Date of admission: 09/05/25 05:57 Discharge Date: 09/07/25 Primary care physician: Isis Finnegan MD Discharge provider: Isis Finnegan MD Summary Hospital Course Discharge Diagnosis: Nephrolithiasis ADHD PCOS Hospital Course: The pt was admitted for pain control related to nephrolithiasis. She required IV pain medications throughout her hospitalization in addition to antiemetics. The pts pain abated at 10pm the night prior to discharge. Urology did discuss potential surgical options with the pt, but due to her pain resolving she elected to not pursue. She will discharge home, stable. Status at Discharge Cognitive/behavioral status at discharge: oriented Functional status at discharge: independent ambulation Overall status at discharge: patient is back to baseline Exam Vital Signs (past 8 hours): Oxygen Delivery Method Room Air Oxygen Flow Rate 0 Narrative Exam Narrative: Gen: NAD, laying comfortably in bed, appears well CV: RRR Resp: clear to auscultation bilaterally Abd: soft, nontender, nondistended Back: no significant CVA tenderness Ext: no edema Objective Labs 09/07/25 06:34 09/07/25 06:34 Labs: Laboratory Results - last 24 hr 09/07/25 06:34 WBC 8.7 RBC 4.13 Hgb 10.6 L Hct 31.5 L MCV 76.3 L MCH 25.5 L MCHC 33.5 RDW 14.4 Plt Count 179 Neut % (Auto) 64.8 Lymph % (Auto) 26.2 [place] % (Auto) 8.1 Eos % (Auto) 0.7 L Baso % (Auto) 0.2 Neut # (Auto) 5700 Lymph # (Auto) 2300 [place] # (Auto) 700 Eos # (Auto) 100 Baso # (Auto) 0 Sodium 140 Potassium 3.7 Chloride 110 H Carbon Dioxide 22 BUN 9 Creatinine 0.87 Estimated GFR > 60 BUN/Creatinine Ratio 10.3 Glucose 93 Calcium 8.6 PFSH Medical History (Updated 09/05/25 @ 05:49 by Franco Rosenthal DO) Chronic headaches ADHD (attention deficit hyperactivity disorder) Migraines Plantar warts (2009) PCOS (polycystic ovarian syndrome) Infertility HPV (human papilloma virus) infection (2008) Abnormal Pap smear of cervix (2008) Surgical History Status post repeat low transverse section Status post delivery (04/25/17) Family History Father Age: 67 Migraine Sleep apnea Grandfather Diabetes mellitus Heart disease Hypertension Grandmother Age: 94 Alzheimer's dementia Mental health problem Mother Age: 67 Hypertension Grandmother Age: 94 Mental health problem Social History marital status: number of children: 2 household members: spouse and family lives independently: Yes caregiver/support person: No housing: house occupational status: unemployed Smoking Status: Never smoker second hand exposure: No alcohol intake: former substance use type: does not use Discharge Plan Discharge Plan Patient Disposition: Home Discharge orders & Medications Prescriptions: Continued metformin 500 mg tablet extended release 24 hr 500 mg PO BID Qty: 180 3RF clotrimazole-betamethasone 1-0.05 % cream 1 applic TOP BID Qty: 45 1RF dextroamphetamine-amphetamine 12.5 mg tablet 12.5 mg PO DAILY Qty: 30 0RF lisdexamfetamine 70 mg capsule 70 mg PO DAILY Qty: 30 0RF hydrocodone-acetaminophen 5-325 mg tablet 1 tab PO Q6H PRN (Reason: pain) Qty: 10 0RF Discontinued fluconazole 150 mg tablet 150 mg PO Q3D 0 Days Qty: 2 0RF Rx Instructions: One tablet today, next tablet in 3 days cefdinir 300 mg capsule 300 mg PO BID 10 Days Qty: 20 0RF fluconazole 200 mg tablet 200 mg PO DAILY Qty: 3 0RF Follow up/Referrals: Isis Finnegan MD [Primary Care Provider, Family Practice] - 2 Weeks Diet/Activity/Treatments Diet: Diet as Tolerated and Regular Skin/Wound/Dressing Care Report to your healthcare provider any signs of infection, such as:: chills, fever and increased pain Visit Report/Discharge Packet Stand Alone Forms: Patient Portal/API, Stroke Signs & Symptoms Discharge Data Primary Care Provider: Isis Finnegan Attending Provider: Isis Finngean Admit Date/Time: 09/05/25 05:57 PROFEE Charge Codes Discharge inpatient/observation: [id number]
--- NOTE | 2025-09-07 10:16 | P.CONS_ITS ---
History of Present Illness Consult details Date Patient Seen: 09/07/25 Time Patient Seen: 07:45 Chief complaint: kidney stone Reason for consult: Left ureteral calculus Narrative: 40 y/o F presented to ER on 02 Sep 2025 for evaluation of severe left flank pain with nausea. She has never passed a kidney stone on her own. She has never required Urological surgery in the past. Her evaluation was notable for a WBC of 11.2, sCr of 0.82 and an unremarkable UA. Her NCCT Abd/Pel was notable for a 5mm left proximal ureterolith with mild left hydroureteronephrosis. She was ultimately discharged home on medical expulsion therapy, however, her severe left flank pain returned a few days later and she returned to ER. Her WBC was 10, sCr of 0.84 and an unremarkable UA. Her NCCT Abd/Pel was notable for progression of her aforementioned left ureterolith to the level of the left UVJ with resultant upstream mild hydroureteronephrosis. Her pain was unable to be controlled, therefore, she was admitted to the hospitalist team for pain control. Urology was consulted on 06 Sep 2025 regarding management, the patient desired to think about it overnight. She has not had any pain in nearly 12 hours and has not had any narcotics either. Meds Home Medications and Allergies Home Medications ?Medication ?Instructions ?Recorded ?Confirmed ?Type clotrimazole-betamethasone 1 1 applic topical BID #45 grams 01/06/24 07/07/25 Rx %-0.05 % topical cream metformin 500 mg tablet,extended 500 mg PO BID #180 ta bs 07/07/25 07/07/25 Rx release 24 hr dextroamphetamine-amphetamine 12.5 12.5 mg PO DAILY #3 0 tabs 08/09/25 Rx mg tablet lisdexamfetamine 70 mg capsule 70 mg PO DAILY #30 caps 08/09/25 Rx hydrocodone 5 mg-acetaminophen 325 1 tab PO Q6H PRN pa in #10 tabs 09/02/25 Rx mg tablet Allergies Allergy/AdvReac Type Severity Reaction Status Date / Time No Known Drug Allergies Allergy Verified 09/02/25 01:53 Review of Systems Review of Systems Narrative: A complete ROS was completed with all pertinent positives and negatives documented in HPI. All other systems were reviewed and are negative. Exam Vital Signs (past 8 hours): Oxygen Delivery Method Room Air Oxygen Flow Rate 0 Narrative Exam Narrative: GEN: Alert and oriented X3. No acute distress. Well-nourished. EYES: PERRLA, EOMI. HENT: Moist mucus membranes, no scleral icterus, normal neck ROM. RESP: Unlabored breathing, equal rise and fall of chest bilaterally, no cyanosis appreciated. CV: No peripheral edema, unremarkable heart rate. ABD: Soft, non-tender, non-distended, no palpable masses. EXT: No edema, clubbing or cyanosis. SKIN: No rashes or lesions. NEURO: No focal neurologic deficits, CN II-XII grossly intact. PSYCH: Cooperative, appropriate mood and affect. Objective Labs 09/07/25 06:34 09/07/25 06:34 Labs: Laboratory Results - last 24 hr 09/07/25 06:34 WBC 8.7 RBC 4.13 Hgb 10.6 L Hct 31.5 L MCV 76.3 L MCH 25.5 L MCHC 33.5 RDW 14.4 Plt Count 179 Neut % (Auto) 64.8 Lymph % (Auto) 26.2 [place] % (Auto) 8.1 Eos % (Auto) 0.7 L Baso % (Auto) 0.2 Neut # (Auto) 5700 Lymph # (Auto) 2300 [place] # (Auto) 700 Eos # (Auto) 100 Baso # (Auto) 0 Sodium 140 Potassium 3.7 Chloride 110 H Carbon Dioxide 22 BUN 9 Creatinine 0.87 Estimated GFR > 60 BUN/Creatinine Ratio 10.3 Glucose 93 Calcium 8.6 PFSH Medical History Chronic headaches ADHD (attention deficit hyperactivity disorder) Migraines Plantar warts (2009) PCOS (polycystic ovarian syndrome) Infertility HPV (human papilloma virus) infection (2008) Abnormal Pap smear of cervix (2008) Surgical History Status post repeat low transverse section Status post delivery (04/25/17) Family History Father Age: 67 Migraine Sleep apnea Grandfather Diabetes mellitus Heart disease Hypertension Grandmother Age: 94 Alzheimer's dementia Mental health problem Mother Age: 67 Hypertension Grandmother Age: 94 Mental health problem Social History marital status: number of children: 2 household members: spouse and family lives independently: Yes caregiver/support person: No housing: house occupational status: unemployed Tobacco & Substance Use Smoking Status: Never smoker second hand exposure: No alcohol intake: former substance use type: does not use Assessment & Plan Assessment and plan (1) Left ureteral stone: Status: Acute Plan: 40 y/o F noted to have a 5mm left proximal ureterolith and was discharged home on medical expulsion therapy, however, returned to ER a few days later for recurrence of her severe left flank pain and has required admission for the last 48 hours to control her pain. Discussed treatment options to include continued medical expulsion therapy vs cystoscopy, ureteroscopy, laser lithotripsy with ureteral stent placement. Discussed risks of the procedure to include but not limited to pain, bleeding, infection, injury to urethra/bladder/ureter, inability to access the ureter requiring discussion with Interventional Radiology regarding a possible ureteral stent placement in an antegrade fashion vs a possible nephroureteral stent and/or percutaneous nephrostomy tube, urinary tract infection, inability to remove all of the stone in one setting, need for emergent open repair of bladder and/or ureter, need for multiple ureteroscopic interventions necessary to render the patient stone free. At this time, she would prefer discharge home on medical expulsion therapy and will return to Urology clinic in [address] KUB. Should her stone have passed, no further intervention is required. Should her stone remain present, she would require a left ureteroscopy with laser lithotripsy and left ureteral stent placement. Time-Based Coding :: [TOTAL MINUTES] spent with patient and on the chart (including review of chart, obtaining history, exam, reviewing outside data, placing orders, documenting exam and treatment plan, and counseling patient) on [DATE]. PROFEE Charge Codes Inpatient or Observation consultation: 04644
--- NOTE | 2025-09-07 10:42 | PC.NURSE ---
Discharge Note Patient remained pain free throughout morning and was requesting to eat and discharge. Dr. Finnegan notified and order received for general diet and for discharge. Escorted to hospital exit by staff member, ambulated, spouse transporting to home. Written and verbal d/c instructions given on kidney stones and on follow up, all questions answered. No valuables in safe, no meds in pharmacy. Cell phone and clothing with pt.
--- NOTE | 2025-09-07 11:19 | CM.DPNOTE ---
DCP note [facility] reviewed EMR per RN, pt pain free for 12 hours. per RN, yasmin said that stone likely passed and can dc home. pt left prior to being seen by this [facility] P: DC home with OP f/u as needed. will continue to follow should any needs arise KIRSTEN Logan
== END 2025-09-07 10:40 | disposition home or self-care (01) ==
LOC: ED 05:57 → AC 05:58
PROVIDERS: Admitting Provider Family Medicine; Emergency Provider Student in an Organized Health Care Education/Training Program; PCP Family Medicine; Visit Provider Family Medicine
DX: N20.0 Calculus of kidney (principal); R11.0 Nausea; R19.7 Diarrhea, unspecified; E28.2 Polycystic ovarian syndrome; F90.9 Attention-deficit hyperactivity disorder, unspecified type
CPT/HCPCS: 36415; 74176; 80048; 80053; 81001; 85025; 96374; 96375; 96376; 99284; G0378; J0780; J1171; J1885; J2272; J2405; J7030